=== PATIENT | female | born 1945 | race Caucasian/White ===

== ENCOUNTER 2019-10-29 | Inpatient (IN) | payer MEDICARE, BC ==
[2019-10-29] VITALS (13 sets, daily range): BP systolic 83–141; BP diastolic 54–78
--- NOTE | 2019-10-29 11:10 | NUR ---
PT TO ROOM PER W/C
--- NOTE | 2019-10-29 11:30 | NUR ---
PT SWABBED FOR COVID-19
--- NOTE | 2019-10-29 11:49 | NUR ---
DR JENKINS AT BEDSIDE FOR INTUBATION; B/P 79/49; PHENYLEPHRINE 2MG GIVEN IV PUSH REPEAT B/P 89/52; ADDITIONAL PHENYLEPHRINE 1MG GIVEN @1141; B/P TO 100/54 @1142-ETOMIDATE 20 MG GIVEN @1142- ROCURRONIUM 100MG GIVEN BY DR JENKINS @1143 PT INTUBATED WITH 7.5 ET TUBE 22@LIP CONFIRMED WITH CO2 @1147- 16F OG TUBE PLACED CONFIRMED BY AUSCULATATION @1147 PROPOFOL DRIP STARTED @5MG/KG/HR PER STANDING ORDERS @1200- CENTRAL LINE PLACED PER DR JENKINS @1209-LEVOPHED DRIP STARTED FOR B/P CONTROL @1218- 16F JESUS PLACED AND SECURED TO RIGHT THIGH; PT TOLERATED WELL
[2019-10-29 11:53] LABS: HEMATOCRIT 39.6 % (37.0-47.0); HEMOGLOBIN 12.4 g/dl (12.0-16.0); IMMATURE GRANULOCYTES 0.4 % (0.0-5.0); MEAN CELL VOLUME 92.5 fL CALC (80.0-100.0); MEAN CORPUSCULAR HGB CONC 31.3 g/dL CAL (32.0-36.0); PLATELET COUNT 149 thou/uL (130-400); RED BLOOD COUNT 4.28 mill/uL (4.20-5.60); RED CELL DISTRI WIDTH 14.4 % (11.5-15.5)
[2019-10-29 12:06] LABS: ALBUMIN 3.2 g/dL (3.2-5.0); BILIRUBIN, TOTAL 0.5 mg/dL (0.0-1.4); CREATININE 4.4 mg/dL (0.5-1.0); POTASSIUM 4.8 mmol/l (3.5-5.1)
--- NOTE | 2019-10-29 12:40 | NUR ---
PT RESTING ON STRETCHER; TOLERATING VENTILATION; PROPOFOL INFUSING FOR SEDATION; IV ANTIBIOTICS INFUSING; DAUGHTER AT BEDSIDE AND INFORMED ON POC AND PLAN TO ADMIT; VERBALIZES UNDERSTANDING AT THIS TIME;
[2019-10-29 12:42] LABS: BAND 42 % (0-8); IMMATURE CELLS 0 %; MANUAL DIFFERENTIAL YES; PLASMA CELL 0
--- NOTE | 2019-10-29 13:00 | NUR ---
RESTRAINTS APPLIED PER ORDERS FOR EQUIPMENT SAFETY AT THIS TIME
[2019-10-29] MEDS ORDERED: CITALOPRAM20 M1 PO (13:32)
[2019-10-29] MEDS ORDERED: LOPRESSOR50 M2 PO (13:33)
[2019-10-29] MEDS ORDERED: SIMVASTATIN80 MG PO (13:33)
[2019-10-29] MEDS ORDERED: LOSARTAN/HCT1 TA2 PO (13:34)
[2019-10-29] MEDS ORDERED: [UNRECOGNIZED DRUG - OTHER] PO (13:35)
[2019-10-29] MEDS ORDERED: ALPRAZOLAM ER0.5 MG PO (13:36)
--- NOTE | 2019-10-29 13:40 | NUR ---
PT RESTING ON STRETCHER; TOLERATING VENTILATIONS; BILATERAL SOFT WRIST RESTRAINTS IN PLACE; IV ANTIBIOTICS INFUSING; PROPOFOL @40; LEVO INFUSING @ 10 PER STANDING ORDERS; JESUS DRAINING PER GRAVITY;
[2019-10-29 13:41] LABS: URINE BILIRUBIN - DIPSTICK NEGATIVE (NEGATIVE); URINE BLOOD DIPSTICK MODERATE (NEGATIVE); URINE COLOR YELLOW; URINE GLUCOSE - DIPSTICK NEGATIVE (NEGATIVE); URINE KETONE TRACE mg/dL (NEGATIVE); URINE LEUK ESTERASE NEGATIVE (NEGATIVE); URINE NITRITE - DIPSTICK NEGATIVE (Negative); URINE PROTEIN - DIPSTICK 30 mg/dL (NEG-TRACE); URINE SPECIFIC GRAVITY >=1.030; URINE UROBILINOGEN - DIPSTICK 0.2 E.U./dL (0.2)
[2019-10-29] MEDS ORDERED: INCRUSE EL62.5 MCG/I IN (13:41)
[2019-10-29 13:50] LABS: URINE SQUAMOUS EPITHELIAL CELL FEW EPI/hpf (0-FEW)
[2019-10-29 13:51] LABS: URINE AMORPH SEDIMENT MANY hpf (NONE-FEW)
--- NOTE | 2019-10-29 14:30 | NUR ---
PT RESTING ON STRETCHER; TOLERATING VENTALATION WELL; PROPOFOL INFUSING AT 40; LEVO @10; JESUS TO GRAVITY; BILATERAL SOFT WRIST RESTRAINTS IN PLACE; VSS; WILL CONTINUE TO MONITOR
--- NOTE | 2019-10-29 15:30 | NUR ---
Admission Note Report Given to: ROCKY KO Transported by: Wheelchair X Stretcher Transported with: X Nurse X Transporter X Patent IV X O2 X Wallet Assembler Location: X ICU MS2 ON [place] PRECAUTIONS
--- NOTE | 2019-10-29 15:30 | NUR ---
PT ARRIVED TO ICU8 FROM ER BY STRETCHER WITH RT ON PRECAUTIONS.
--- NOTE | 2019-10-29 15:30 | NUR ---
DAUGHTER EJ CALLED WITH UPDATE;
--- NOTE | 2019-10-29 15:45 | NUR ---
SPUTUM SPECIMEN OBTAINED AND SENT TO LAB.
--- NOTE | 2019-10-29 16:40 | NUR ---
LENNIE ROJAS, CALLED PTS DAUGHTER FOR INFORMATION FOR ADMISSION A.
--- NOTE | 2019-10-29 16:45 | NUR ---
CALLED ROCKY MOSS IN ER TO UPDATE EMAR, UNKNOWN IF MEDS WERE GIVEN IN THE ER.
--- NOTE | 2019-10-29 17:00 | NUR ---
LENNIE ROJAS, SPOKE WITH PTS DAUGHTER EJ SHAHID @ [phone]. PER DAUGHTER, PT LIVES WITH DAUGHTER IN [place]. THEY CAME DOWN TO [place] TO SEE DAUGHTERS NEW HOUSE. PT PRESENTED TO THE ER FOR WEAKNESS, FEVER, & DIARRHEA. PT WALKS, W/OUT A MOBILITY AID; RECENT FALL (TRIPPED C/O RIGHT SIDE RIB PAIN SORE W/OUT BRUISING). PT CURRENTLY HAS BRUISING TO BLE. TANO STATED SHE'S BEEN ASSISTING PT TO BATHROOM D/T DIARRHEA AND NOTICED PTS URINE TURNING ORANGE. LAST BM TODAY- WATERY BROWN; USUALLY NEEDS LAXATIVES FOR BM. PT IS OXYGEN DEPENDENT AT HOME- USES 3-4L NC, NORMAL O2 IS 89%. PT DRIVES SELF. NO HOME HEALTH. SYNAGOGUE: NONE. HX OF BLOOD TRANSFUSION W/OUT REACTIONS OR OBJECTIONS. PT DOES HAVE DENTURES BUT THEY ARE AT HOME. PT SMOKES CIGARETTES 1 PK/WK. DENIES ALCOHOL & REC DRUGS. FAMILY HX OF HEART DISEASE & CANCER. HAS NOT HAD THE FLU/PNA VACCINE & DOES NOT WANT EITHER. 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 PT & DAUGHTER DROVE DOWN TO [place]. PT VENTED: RATE 20, TV 500, FIO2 50%, PEEP 5. LUNGS CTA. HR SINUS TACH W/WEAK PULSES x4. ABD SOFT/DISTENDED. TRACE EDEMA TO ANKLES. SLUGGISH +3 CAP REFILL. EYES PERRLA @3. RIJ x3 HAS PROPOFOL @40 & LEVOPHED @15 & LR @KVO. ETT 7. @LIP. #16F MIKE JESUS. BILATERAL SOFT WRIST RESTRAINTS. #20 LAC SL. #16F OG
--- NOTE | 2019-10-29 20:15 | NUR ---
PATIENT ON VENT, TOLERATING WELL. RIJTLC INTACT WITH DIPRIVAN AT 40 MCG AND NS AT 125 ML/HR, LEVOPHED AT 15 MCG. BP STABLE. ADEQUEATE SEDATION ON DIPRIVAN-RASS -4. JESUS DRAINS MURKY, CLOUDY YELLOW URINE. SOFT WRIST RESTRAINTS IN PLACE. INTENSIVE CARE MEDICINE SPECIALIST SHOW ST WITH IVCD.
--- NOTE | 2019-10-29 21:30 | NUR ---
SUX ETT FOR THIN FROTHY, MARII BROWN SECRETIONS. SUX ORALLY FOR MINIMAL AMOUTN FROTHY WHITE.
--- NOTE | 2019-10-29 22:00 | NUR ---
REPOSTIONED. IV INFUSING WITHOUT INCIDENT.
[2019-10-30] VITALS (34 sets, daily range): BP systolic 73–159; BP diastolic 40–70
--- NOTE | 2019-10-30 00:05 | NUR ---
VSS. LEVOPHED GTT CONTINUES AT [address] WITH IVCD ON MONITOR.
--- NOTE | 2019-10-30 02:15 | NUR ---
NO CHANGES TO REPORT. TOLERATES VENT WELL.
--- NOTE | 2019-10-30 04:00 | NUR ---
REPOSITONED IN BED. SUX ETT FOR LARGE AMOUNT THICK RUSY-BROWN COLORED FLUID.
--- NOTE | 2019-10-30 06:30 | NUR ---
BLOOD DRAWN FROM [facility] FOR LAB WORK.
[2019-10-30 07:07] LABS: IMMATURE GRANULOCYTES 1.4 % (0.0-5.0); MEAN CORPUSCULAR HGB 29.4 pG CALC (26.0-32.0); NEUT# 15.85 thou/uL (2.00-7.15); RED BLOOD COUNT 3.5 mill/uL (4.20-5.60); RED CELL DISTRI WIDTH 14.5 % (11.5-15.5)
[2019-10-30 07:10] LABS: POTASSIUM 4.6 mmol/l (3.5-5.1)
[2019-10-30 07:12] LABS: CREATININE 3.2 mg/dL (0.5-1.0)
--- NOTE | 2019-10-30 07:20 | NUR ---
ENTERED ROOM TO TITRATE LEVOPHED D/T PTS BP.
[2019-10-30 07:24] LABS: HEMOGLOBIN 10.3 g/dl (12.0-16.0)
[2019-10-30 07:25] LABS: HEMATOCRIT 32.2 % (37.0-47.0)
--- NOTE | 2019-10-30 08:06 | NUR ---
ENTERED PTS ROOM TO CHECK ON IV DRIPS & COMPLETE ASSESSMENT. COARSE LUNG SOUNDS THROUGHOUT ALL LOBES. EDEMA TO BILATERAL ANKLES. ABD SOFT, ACTIVE BS. SOFT BILATERAL WRIST RESTRAINTS IN PLACE. BREATHING EVEN/REGULAR ON VENT AT 60%. BP CUFF READJUSTED. VSS.
--- NOTE | 2019-10-30 09:45 | NUR ---
DR RAMON @BEDSIDE ASSESSING PT
--- NOTE | 2019-10-30 10:30 | NUR ---
ENTERED PTS ROOM TO MEDICATE. OG SUCTION TURNED OFF FOR PO MED DIGESTION. VSS. WILL CONTINUE TO MONITOR.
--- NOTE | 2019-10-30 11:06 | NUR ---
IV DRIP BAGS CHANGED: PROPOFOL, NS, & LEVOPHED.
--- NOTE | 2019-10-30 11:58 | NUR ---
ENTERED ROOM FOR ABX. OG RECONNECTED TO LIS.
--- NOTE | 2019-10-30 14:15 | NUR ---
ENTERED ROOM TO REPLACE PROPOFOL. PT SUCTIONED, ORAL CARE COMPLETED. PT TURNED. CATH JESUS INSPECTED D/T LACK OF URINE OUTPUT; NOTIFIED.
--- NOTE | 2019-10-30 14:28 | NUR ---
RT CALLED FOR THICK YELLOW MUCOS IN VENT FILTER.
--- NOTE | 2019-10-30 14:34 | NUR ---
CALLED TO PT ROOM TO CHANGE FILTER. PIP 28
--- NOTE | 2019-10-30 14:39 | NUR ---
REPLACED HME AND INLINE SUCTION. PIP 212. SAO3 97%
--- NOTE | 2019-10-30 16:49 | NUR ---
S: JUDI HERNANDEZ is a 73 F who presents with PNEUMONIA/SEPSIS. She has a history of RESPIRATORY FAILURE, COPD, AND CHF. All medications in patient's chart were reviewed. O: VS: BP 159/70 MMHG, P 120 BPM, RR 2 BREATHS/MIN, T 99.1 F W 83.007 KG, HT 64 IN, Scr 3.2 MG/DL, CrCl 19.9 ML/MIN A: Blood culture is pending. P: Patient is on AZITHROMYCIN 500MG IV Q24 AND CEFEPIME 1G IV Q12H. Vancomycin ordered for pharmacy to dose. Start Vancomycin 1250MG IV Q36H STARTING 10/31/19 @ 1200. PT RECEIVED 1G IV 10/28 IN THE ED AT 1300 AND 2300. Vancomycin trough is drawn before the 4th dose on 11/05/2019 @ 2330. Vancomycin goal trough is between 15-20 mcg/ml. Pharmacy will follow and or advise on antibiotics use as needed.
--- NOTE | 2019-10-30 19:00 | NUR ---
vent cont assisted by ptDylan henry. sx thin arreguin sputum. control officer manager shows sinus tach ivcd. #20 saline lock lac. rij tlc in place. ns infusing @ 100cchr, diprivan infusing @ 40mcg/kg/min, levo infusing @ 18mcg/min. yadav cath in place. urine clear yellow. turned & repositioned. bilat wrist restraints & bilat scds cont. requires total assist for all care. airborn isolation cont.
--- NOTE | 2019-10-30 22:00 | NUR ---
vent cont assisted by pt. monitoring engineer shows sinus rhythm hr 90. yadav draining well.
[2019-10-31] VITALS (88 sets, daily range): BP systolic 72–161; BP diastolic 44–75
--- NOTE | 2019-10-31 00:01 | NUR ---
eyes closed. vent cont assisted by pt. prescriptionist shows sinus rhythm hr 88.
--- NOTE | 2019-10-31 02:00 | NUR ---
vent cont assisted by pt. no distress. pelt grader shows sinus tach hr 106.
--- NOTE | 2019-10-31 03:45 | NUR ---
blood drawn & sentt to lab. am care given x2 assists. josselyn ames.
--- NOTE | 2019-10-31 05:03 | NUR ---
rt here. abg drawn.
[2019-10-31 05:21] LABS: HEMATOCRIT 30.4 % (37.0-47.0); HEMOGLOBIN 9.7 g/dl (12.0-16.0); MEAN CELL VOLUME 91.6 fL CALC (80.0-100.0); MEAN CORPUSCULAR HGB 29.2 pG CALC (26.0-32.0); MEAN CORPUSCULAR HGB CONC 31.9 g/dL CAL (32.0-36.0); RED BLOOD COUNT 3.32 mill/uL (4.20-5.60); RED CELL DISTRI WIDTH 14.6 % (11.5-15.5)
[2019-10-31 05:45] LABS: BILIRUBIN, TOTAL 0.5 mg/dL (0.0-1.4); CREATININE 3.2 mg/dL (0.5-1.0); MAGNESIUM 1.8 mg/dL (1.6-2.3)
[2019-10-31 05:49] LABS: POTASSIUM 3.5 mmol/l (3.5-5.1); TOTAL PROTEIN 4.4 g/dL (6.3-8.2)
[2019-10-31 05:50] LABS: ALBUMIN 2.1 g/dL (3.2-5.0)
--- NOTE | 2019-10-31 06:27 | NUR ---
xray here. pcxr obtained.
--- NOTE | 2019-10-31 07:50 | NUR ---
PT IN BED. VENTED AND SEDATED. PT ON LEVO FOR BLOOD PRESSURE SUPPORT. PT TURNED. ORAL CARE PROVIDED. WILL CONTINUE TO MONITOR
--- NOTE | 2019-10-31 09:30 | NUR ---
DR. RAMON AT BEDSIDE TO ASSESS POT. NOTIFIED OF PT HR IN 100-130'S. METOPROLOL TO BE GIVEN AND IF NO CHANGE START CARDIZEM GTT PER DR. RAMON. WILL CONTINUE TO MONITOR
--- NOTE | 2019-10-31 10:00 | NUR ---
PT INTUBATED AND SEDATED. TURNED. PT HR BELOW 100'S. DR RAMON NOTIFIED. TOLD TO HOLD [facility] GTT FOR NOW. WILL CONTINUE TO MONITOR
--- NOTE | 2019-10-31 11:15 | NUR ---
PT HR 120'S-130'S. CARDIEM GTT STARTED. DR RAMON NOTIFIED. WILL CONTINUE TO MONITOR DR RAMON NOTIFIED OF DIETARY RECOMMENDATIONS. TUBE FEEDS TO BE STARTED
--- NOTE | 2019-10-31 12:00 | NUR ---
PT INTUBATED AND SEDATED. AFEBRILE. TURNED. ON PROP, LEVO AND CARDIZEM GTT. WILL CONTINUE TO MONITOR
--- NOTE | 2019-10-31 12:30 | NUR ---
SPOKE WITH DAUGHTER EJ. UPDATED ON PT STATUS
--- NOTE | 2019-10-31 12:50 | NUR ---
TUBE FEEDS STARTED PER ORDER.
--- NOTE | 2019-10-31 14:00 | NUR ---
PT INTUBATED AND SEDATED. HR BELOW 100'S. NO DISTRESS NOTED. WILL CONTINUE TO MONITOR
--- NOTE | 2019-10-31 15:17 | NUR ---
PRELIMINARY BLOOD CULTURE RESULTS SHOW 4 BOTTLES OF GRAM POSITIVE COCCI. PT IS CURRENTLY RECEIVING VANCOMYCIN IN ICU
--- NOTE | 2019-10-31 16:30 | NUR ---
PT SEDATED AND INTUBATED. NO DISTRESS NOTED. NO SIGNS OF PAIN NOTED. WILL CONTINUE TO MONITOR
--- NOTE | 2019-10-31 18:05 | NUR ---
SPOKE TO DAUGHTER EJ. UPDATED ON PT STATUS.
--- NOTE | 2019-10-31 18:42 | NUR ---
REPORT GIVEN TO NIGHT NURSE. PT STILL INTUBATED AND SEDATED. ON LEVO, PROP AND CARDIZEM GTT. AFEBRILE. TUBE FEEDS STARTED. NO BM. JESUS. PLEASE SEE FLOW SHEET FOR FURTHER DETAILS
--- NOTE | 2019-10-31 19:00 | NUR ---
eyes closed. vent cont assisted by pt. oral care & suctioned small amount thin arreguin sputum. pulmocare infusing @ 30cchr per og. no residual. rij tlc in place. levo infusing @ 16mcg/min, diprivan infusing @ 40mcg/kg/min, cardizem infusing @ 5mg/min, ns infusing @ 125cchr. child monitor shows sinus rhythm ivcd hr 88. yadav cath in place. urine clear yellow. bilat scds & wrist restraints cont. requires total care for all needs. turned & repositioned. droplet/airborn precautions cont.
--- NOTE | 2019-10-31 22:00 | NUR ---
vent cont unassisted by pt. cardiac cath lab technologist shows sinus rhythm ivcd hr 78.
[2019-11-01] VITALS (18 sets, daily range): BP systolic 84–143; BP diastolic 3–64
--- NOTE | 2019-11-01 00:01 | NUR ---
resting quietly. vent cont unassisted by pt. yadav draining well.
--- NOTE | 2019-11-01 02:00 | NUR ---
resting quietly. nad. stoper shows sinus rhythm ivcd hr 72.
--- NOTE | 2019-11-01 04:20 | NUR ---
blood drawn & sent to lab. am care x2 assists. josselyn ames.
[2019-11-01 05:26] LABS: HEMATOCRIT 28.3 % (37.0-47.0); HEMOGLOBIN 9.4 g/dl (12.0-16.0); MEAN CELL VOLUME 90.1 fL CALC (80.0-100.0); MEAN CORPUSCULAR HGB 29.9 pG CALC (26.0-32.0); MEAN CORPUSCULAR HGB CONC 33.2 g/dL CAL (32.0-36.0); RED BLOOD COUNT 3.14 mill/uL (4.20-5.60)
[2019-11-01 05:39] LABS: BILIRUBIN, TOTAL 0.3 mg/dL (0.0-1.4); CREATININE 2.6 mg/dL (0.5-1.0); POTASSIUM 3.5 mmol/l (3.5-5.1); TOTAL PROTEIN 4.1 g/dL (6.3-8.2)
--- NOTE | 2019-11-01 06:00 | NUR ---
xray here. pcxr obtained.
--- NOTE | 2019-11-01 07:51 | NUR ---
PT SEEN INTUBATED AND UNRESPONSIVE APPROPRIATELY. PT WITH NS, LEVOPHED, CARDIZEM, PROPOFOL DRIPS ALONG WITH OG FEEDING. LUNGS CLEAR, POSITIVE BOWEL SOUNDS, ADEQUATE BLOOD PRESSURE. SCDs IN PLACE. RESTRAINTS LOOSENED, ARMS LIFTED, SEEN TO HAVE DEPENDENT EDEMA TO BILATERAL ELBOW AREAS. JESUS DRAINS CLEAR YELLOW URINE. LAB TO NOTIFY US WHEN COVID-19 RESULT IS REPORTED TO THEM FROM HEALTH DEPARTMENT. APPROPRIATE CAUTION HAS BEEN EXERCIZED IN DONNING OF MASKS AND GOWNS PER UNKNOWN RESULT.
--- NOTE | 2019-11-01 10:11 | NUR ---
PT SEEN BY DR RAMON THIS MORNING. LASIX PROVIDED PER SWELLING. PT CONTINUES BEFORE, SATS 93%. CARDIZEM STOPPED PER LOW BP AND NORMAL RHYTHM. PO MEDS PROVIDED THROUGH OG.
--- NOTE | 2019-11-01 12:39 | NUR ---
PT'S BLOOD PRESSURE DROPS INTO THE 80s, SO LEVOPHED HAS BEEN TITRATED UPWARD. HR REMAINS IN THE 60s, O2 IN LOW TO MID 90%s. TUBE FEEDINGS BEFORE, RESIDUAL 40 ML. PT ROTATED ONE SIDE TO THE OTHER FOR SKIN PRESERVATION. HEELS OFFLOADED WITH PILLOWS.
--- NOTE | 2019-11-01 15:06 | NUR ---
LEVOPHED DRIP NOW AT 11 MCG/MIN, BLOOD PRESSURE IN THE LOW 100s SYSTOLIC. PT DID HAVE A BM TODAY, SKIN CARE PROVIDED WHEN SHE WAS TURNED. NO SKIN BREAKDOWN OR REDNESS. LOTION APPLIED TO BACK AND BOTTOM.
--- NOTE | 2019-11-01 16:39 | NUR ---
DAUGHTER, EJ, CALLED FOR UPDATE ON PT. RYANAIME STATES PT IS A DNR BUT PAPERWORK IS IN HER FILING CABINET AT HOME. SHE REQUESTS WE GET HER RECORDS FROM [facility] IN [place].
--- NOTE | 2019-11-01 17:11 | NUR ---
LEVOPHED AT 13 MCG/MIN, BP STABLE. PT REPOSITIONED FOR COMFORT AND SKIN PRESERVATION. OG TUBE FEEDINGS HELD PER RESIDUAL > 70 ML, TO RECHECK. DAUGHTER UPDATED BY STEFANI HIDALGO WHEN SHE CALLED TO CHECK ON PT. VENT SETTINGS HAVE REMAINED THE SAME THROUGHOUT THE DAY. ICU DIRECTOR RIVER HAS CALLED TO SAY THAT PT IS NEGATIVE FOR CORONAVIRUS.
--- NOTE | 2019-11-01 19:15 | NUR ---
vent cont assist by pt. sx small amount arreguin thin sputum. rij tlc in place. levo infusing @ 13mcg/min, ns infusing @ 75cchr, diprivan infusing @ 40mcg/kg/min. tube feeding cont per og. yadav cath in place urine yellow with sediment. bilat arms remain edematous & are elevated on pillows. bilat scds cont. turned & repositioned. requires total care for all needs. fall precautions cont.
--- NOTE | 2019-11-01 22:00 | NUR ---
vent cont assisted by pt. cardiac monitor technician shows sinus rhythm ivcd hr 92.
[2019-11-02] VITALS (29 sets, daily range): BP systolic 63–140; BP diastolic 43–72
--- NOTE | 2019-11-02 00:01 | NUR ---
25cc tube feeding residual. hob remains elevated.
--- NOTE | 2019-11-02 02:00 | NUR ---
vent cont assisted by pt. ivf infusing well. yadav draining well.
--- NOTE | 2019-11-02 04:00 | NUR ---
tube feeding residual 55cc. tube feeding turned off.
--- NOTE | 2019-11-02 04:30 | NUR ---
blood drawn & sent to lab. bath & linen change complete. no distress.
[2019-11-02 04:59] LABS: HEMATOCRIT 28.5 % (37.0-47.0); HEMOGLOBIN 9.6 g/dl (12.0-16.0); MEAN CELL VOLUME 90.8 fL CALC (80.0-100.0); MEAN CORPUSCULAR HGB 30.6 pG CALC (26.0-32.0); MEAN CORPUSCULAR HGB CONC 33.7 g/dL CAL (32.0-36.0); RED BLOOD COUNT 3.14 mill/uL (4.20-5.60); RED CELL DISTRI WIDTH 15.4 % (11.5-15.5)
[2019-11-02 05:15] LABS: BILIRUBIN, TOTAL 0.4 mg/dL (0.0-1.4); CREATININE 2.4 mg/dL (0.5-1.0); MAGNESIUM 1.8 mg/dL (1.6-2.3); POTASSIUM 3.3 mmol/l (3.5-5.1); TOTAL PROTEIN 4.3 g/dL (6.3-8.2)
--- NOTE | 2019-11-02 06:00 | NUR ---
phototypesetting equipment monitor shows sinus rhythm ivcd hr 71. bilat arms & labia more edematous tonite.
--- NOTE | 2019-11-02 06:44 | NUR ---
DR RAMON CALLED AT 0642 FOR ABG RESULT. LEFT MESSAGE ON VOICEMAIL
--- NOTE | 2019-11-02 06:45 | NUR ---
RECIEVED REPORT FROM LENNIE IBANEZ. ASSUMED PT CARE.
--- NOTE | 2019-11-02 07:00 | NUR ---
RT AT BEDSIDE, PT TRANSFERRED VIA BED TO ICU 4 FROM ICU BED 8. PT TOLERATED TRANSFER WELL. VSS, WILL MONITOR.
--- NOTE | 2019-11-02 07:15 | NUR ---
PT REMAINS SR WITH IVCD ON TELEMETRY. INTUBATED, SETTINGS AC, TV-500, FIO2@60%, RATE-20, PEEP-5, AT LIP 22CM, ETT-7.5. OG PLACEMENT VERIFIED VIA AUSCULTATION. 30ML OF RESIDUAL NOTED. CONTINUOUS FEED ON HOLD AT THIS TIME. PT REPOSITIONED, MOUTH CARE GIVEN. JESUS REMAINS PATENT, DARAING TO BSD VIA GRAVITY. PT REMAINS SEDATED, NO RESPONSE TO STIMULI, BUE REMAIN ELEVATED WITH PILLOWS WITH EDEMA, SOFT BILAT WRIST RESTRAINTS INTACT, BLE WITH SCD'D ON, BILAT FEET WITH EDEMA NOTED. WILL MONITOR.
--- NOTE | 2019-11-02 07:22 | NUR ---
PT TRANSFERED FROM ICU8 TO ICU 4 BY AMBU BAG CONNECTED TO OXYGEN TANK. PT TOLERATED WELL. ROCKY DOWLING AT BEDSIDE.
--- NOTE | 2019-11-02 08:30 | NUR ---
DR. RAMON AT BEDSIDE FOR ASSESSMENT AND TO DISCUSS PLAN OF CARE, NEW ORDERS RECIEVED.
--- NOTE | 2019-11-02 10:00 | NUR ---
PT REPOSITIONED, MOUTHCARE GIVEN, PT LUE CONTINUES WEEPING, PILLOW CHANGED. WILL MONITOR.
--- NOTE | 2019-11-02 10:07 | NUR ---
INFECTION DISEASE CONSULT PLACED
--- NOTE | 2019-11-02 10:23 | NUR ---
LAB AT BEDSIDE FOR BLOOD DRAW.
--- NOTE | 2019-11-02 10:25 | NUR ---
BLOOD DRAWN FROM PT RIJ/TL, FLUSH AFTER. PT TOLERATED WELL. WILL MONITOR.
--- NOTE | 2019-11-02 11:08 | NUR ---
TITRATED DIPROVAN FOR WAKE STUDY.
--- NOTE | 2019-11-02 11:37 | NUR ---
PT DAUGHTER CALLED, CODE RECIEVED, UPDATE GIVEN. PT DAUGHTER EJ ASKED THAT SHE BE CALLED AFTER ID CONSULT, # [phone]
--- NOTE | 2019-11-02 12:05 | NUR ---
PT REPOSITIONED, MOUTHCARE DONE. PT CONTINUES BE NON RESPONSIVE TO WAKE STUDY, JESUS PATENT DRAINING TO BSD VIA GRAVITY.
--- NOTE | 2019-11-02 13:30 | NUR ---
TITRATED DIPROVAN OFF, PT REMAINS SEDATED.
--- NOTE | 2019-11-02 14:00 | NUR ---
PT REPOSITIONED, RESTRAINTS CHECKED, MOUTH CARE. PT TOLERATED WELL, JESUS REMAINS PATENT. WILL MONITOR.
--- NOTE | 2019-11-02 15:26 | NUR ---
DR. RODRIGUEZ WITH VIDEO/AUDIO CONSULT, NO NEW ORDERS NOTED AT THIS TIME.
--- NOTE | 2019-11-02 15:58 | NUR ---
PT REMAINS IS RESPONSIVE TO PAINFUL TACTILE STIMULI ONLY BY FURROWING BROW, WILL NOT OPEN EYES OR RESPOND TO VERBAL STIMULU OR CUES. SANDY REMAINS OFF, DR. RAMON AWARE.
--- NOTE | 2019-11-02 16:43 | NUR ---
RT AT BEDSIDE FOR ASSESSMENT AND SUCTION.
--- NOTE | 2019-11-02 17:49 | NUR ---
PT DAUGHTER EJ CALLED WITH PT CODE, UPDATE GIVEN. PT REMAIN RESTING WITH EYES CLOSED, INTUBATED, DIPROVAN OFF, RESTRAINTS INTACT, JESUS REMAINS PATENT, DRAINING TO BSD VIA GRAVITY. WILL MONITOR.
--- NOTE | 2019-11-02 18:36 | NUR ---
REMAINS INTUBATED, DIPROVAN REMAINS OFF AT THIS TIME. NO DISTRESS NOTED. JESUS REMAINS PATENT TO [facility] VIA GRAVITY. WILL MONITOR.
--- NOTE | 2019-11-02 20:00 | NUR ---
REMAINS INTUBATED WITH EYE TIGHTENING AND MINIMAL FACIAL GRIMACE WITH ASSESSMENT. DOES NOT MOVE EXTREMITIES OR FOLLOW. TACHYCARDIA REDUCED AFTER SUCTION AND REPOSITION. BP REMAINS LABILE LEVOPHED WEANED CONSERVATIVELY. RESTARTED ON PROPOFOL LOW DOSE TO REDUCE HR RR AND 02 DEMAND. FIO2 INCREASE FROM 60 TO 70% TO MAINTAIN 02 SAT 90%. REFER TO FLOWSHEET FOR COMPLETE ASSESSMENT.
--- NOTE | 2019-11-02 22:00 | NUR ---
DR PADILLA NOTIFIED EARLIER FOR PT CONDITION UPDATE OF TACHYCARDIA AND LEVOPHED. ONE TIME DOSE OF IV DIGOXIN GIVEN. HS LOPRESSOR TO BE HELD.
--- NOTE | 2019-11-02 22:50 | NUR ---
NEW ORDERS FROM DR PADILLA AFTER EKG RESULTS CONFIRMED PT IN SINUS TACH WITH PACS RATE 135 BUT DOES RANGE TO 150S. STAT ABG AND CXR ORDERED. DOES NOT WANT CARDIZEM DRIP RESTARTED.
[2019-11-03] VITALS (21 sets, daily range): BP systolic 81–138; BP diastolic 45–73
--- NOTE | 2019-11-03 01:20 | NUR ---
POST 1HR ABG RESULTS CALLED TO DR PADILLA. UPDATED ON IMPROVED BP AND HR. NO FURTHER ORDERS. ABG AND CXR TO BE REPEATED IN AM.
--- NOTE | 2019-11-03 03:00 | NUR ---
REMAINS ON LEVOPHED AND PROPOFOL. HR 90S AFTER IVF BOLUS AND SBP REMAINS GREATER THAN 90. I/O CHECK Q2HRS, NEURO CHECKS Q4HRS.
--- NOTE | 2019-11-03 04:00 | NUR ---
FACIAL GRIMACE AND CLOSING MOUTH AROUND MOUTH CARE. SQUINTS EYES WHEN ATTEMPTING PUPIL CHECKS. RR MINIMAL ABOVE VENT.
[2019-11-03 05:17] LABS: HEMATOCRIT 28.4 % (37.0-47.0); HEMOGLOBIN 9.6 g/dl (12.0-16.0); MEAN CELL VOLUME 89.9 fL CALC (80.0-100.0); MEAN CORPUSCULAR HGB 30.4 pG CALC (26.0-32.0); MEAN CORPUSCULAR HGB CONC 33.8 g/dL CAL (32.0-36.0); PLATELET COUNT 129 thou/uL (130-400); RED BLOOD COUNT 3.16 mill/uL (4.20-5.60); RED CELL DISTRI WIDTH 15.8 % (11.5-15.5)
[2019-11-03 05:28] LABS: BILIRUBIN, TOTAL 0.4 mg/dL (0.0-1.4); CREATININE 2.8 mg/dL (0.5-1.0); MAGNESIUM 1.8 mg/dL (1.6-2.3); POTASSIUM 3.4 mmol/l (3.5-5.1); TOTAL PROTEIN 4.4 g/dL (6.3-8.2)
[2019-11-03 05:39] LABS: IMMATURE GRANULOCYTES 7.5 % (0.0-5.0); MANUAL DIFFERENTIAL YES
[2019-11-03 05:40] LABS: BAND 0 % (0-8); IMMATURE CELLS 0 %; NUCLEATED RED BLOOD CELL 0 /100WBC (0-1)
--- NOTE | 2019-11-03 06:15 | NUR ---
[facility]LEV WBC CALLED TO DR RAMON. AFTER PHONE UPDATE GIVEN OF 12 HOUR CONDITION CHANGES AND TREATMENT MD GAVE ORDER TO TRANSFER TO [facility] FOR HEAD LOADER CARE AND PULMONARY SUPPORT.
--- NOTE | 2019-11-03 06:30 | NUR ---
CALL TO [facility]. SPOKE FIRST WITH AVTAR AND THEN TO BETTY. ASKING IF PT HAS PRIMARY CARE PHYSICIAN IN [place]. ACCORDING TO DAUGHTER PT ONLY HAS TRUCK DRIVER TEAMSTER AND ORTHOPEDIC PHYSICIAN. CALL PLACED TO DAUGHTER, EJ, SHE WILL BE IN TO SIGN CONSENT FOR TRANSFER.
--- NOTE | 2019-11-03 06:45 | NUR ---
RECIEVED REPORT FROM ROCKY STALLWORTH. ASSUMED PT CARE.
--- NOTE | 2019-11-03 07:00 | NUR ---
CALLED PT DAUGHTER, CONSENT TO TRANSFER OBTAINED BY X2 NURSES.
--- NOTE | 2019-11-03 07:15 | NUR ---
PT REMAINS ST ON TELEMETRY,HR 100. INTUBATED, SEDATED. JESUS CATHETER REMAINS PATENT, DRAINING TO BSD VIA GRAVITY. VENT SITTINGS ASC, TV-500, FIO2@80%, RATE-20, PEEP-8, LL-22CM, ETT 7.5. BILAT SOFT WRIST RESTRAINTS INTACT. LS COARSE THROUGHOUT, CONTINUES WITH EDEMA TO BUE, IMPROVED FROM YESTERDAY. SCD'S BLE. WILL MONITOR. TRANSFERR TO [facility] PENDING.
--- NOTE | 2019-11-03 07:20 | NUR ---
CALLED PHARMACY FOR LEVO DRIP
--- NOTE | 2019-11-03 07:34 | NUR ---
REPORT GIVEN TO ONCOMING RN WILL FOLLOW THROUGH WITH TRANSFER ORDERS. CONSENT TO BE OBTAINED FROM DAUGHTER VIA PHONE.
--- NOTE | 2019-11-03 08:30 | NUR ---
DR. RAMON AT [facility] FOR ASSESSMENT AND TO DISCUSS PLAN OF CARE, NEW ORDERS RECIEVED.
--- NOTE | 2019-11-03 08:37 | NUR ---
FRANCISCO FROM [facility] CALL WITH BED ASSIGNMENT, ROOM #[id number].
--- NOTE | 2019-11-03 10:03 | NUR ---
CALLED JOSE TO INITIATE TRANSFER [facility], SPOKE WITH YAKELIN. JOSE ETA 30 MIN.
--- NOTE | 2019-11-03 10:45 | NUR ---
JOSE ARRIVED ON UNIT FOR TRANSFER.
--- NOTE | 2019-11-03 11:10 | NUR ---
REPORT CALLED TO ROCKY HUNT AT [facility] [phone]
--- NOTE | 2019-11-03 11:15 | NUR ---
PT LEFT WITH [facility] VIA STRETCHER.
== END 2019-11-03 11:15 | disposition short-term general hospital (02) | DRG 870 ==
PROVIDERS: Family Medicine; Internal Medicine; ADMIT Internal Medicine
PROC: 02HV33Z Insertion of Infusion Device into Superior Vena Cava, Percutaneous Approach (ICD-10-PCS; principal; 2019-10-29)
PROC: 5A1955Z Respiratory Ventilation, Greater than 96 Consecutive Hours (ICD-10-PCS; 2019-10-29)
PROC: 0BH17EZ Insertion of Endotracheal Airway into Trachea, Via Natural or Artificial Opening (ICD-10-PCS; 2019-10-29)
DX: A40.3 Sepsis due to Streptococcus pneumoniae (principal); J96.21 Acute and chronic respiratory failure with hypoxia; J18.9 Pneumonia, unspecified organism; R65.21 Severe sepsis with septic shock; G93.41 Metabolic encephalopathy; N17.9 Acute kidney failure, unspecified; I50.22 Chronic systolic (congestive) heart failure; N18.9 Chronic kidney disease, unspecified; Z99.81 Dependence on supplemental oxygen; Z20.828 Contact with and (suspected) exposure to other viral communicable diseases
CPT/HCPCS: J0692; J1160; J3370; J3475; Q3014; S0164